=== PATIENT | female | born 1985 | race Caucasian/White ===

== ENCOUNTER → 2016-09-27 | Outpatient (CLI) | payer BC ==
[~2016-09-27] MED LIST: GADAVIST IV PRN
--- NOTE | 2016-09-27 20:05 | DIAGNOSTIC IMAGING REPORT ---
BRAIN COMBO FOR IAC CLINICAL HISTORY: Dizziness. Worsening migraines. Mass behind left tympanic membrane. COMPARISON STUDY: MRI the brain November 19, 2014. TECHNIQUE: Utilizing a 1.5 Migdalia magnet, multiplanar, multi echo imaging of the brain was performed pre and postcontrast administration. Injection of 7.5 cc of Gadavist IV was uneventful. Thin cut imaging through the internal auditory canals was performed. FINDINGS: There are no areas of restricted diffusion. No acute intracranial hemorrhage, midline shift or mass effect is present. Ventricular system is normal. Brain volume is normal. Basilar cisterns are patent. There are no extra-axial collections. There are no intracranial masses or areas of pathologic enhancement. There are no masses or abnormal enhancement within the internal auditory canals. There is no fluid within the mastoid air cells. A small amount of secretions within the left sphenoid sinus and a mucous retention cyst within the left maxillary sinus are similar to MRI of November 19, 2014. No areas of signal abnormality are identified within the brain. IMPRESSION: 1. Normal MRI of the brain. 2. No abnormalities within the internal auditory canals. Electronically signed by: Gregg Casper M.D. 09/27/2016 8:04 PM Dictated Date/Time: 09/27/2016 7:58 PM
--- NOTE | 2016-09-28 10:25 | DIAGNOSTIC IMAGING REPORT ---
CT OF THE TEMPORAL BONES WITHOUT CONTRAST CLINICAL HISTORY: Mass behind left tympanic membrane. Dizziness. Evaluate for cholesteatoma. TECHNIQUE: Thin cut axial images through the temporal bones were obtained. Coronal and sagittal reformats were viewed. COMPARISON STUDY: MRI of the brain November 19, 2014. FINDINGS: A small amount of secretions within the left sphenoid sinus are noted. Similar findings were shown on MRI of November 19, 2014. There is mucosal thickening or a small mucous retention cyst within the left maxillary sinus. Major drainage pathways of the sinuses are clear. There is no fluid within the mastoid air cells. The ossicles are intact. No mass is identified within either middle ear. There is no bony destruction. Semicircular canals appear intact. The tegmen tympani is intact. No semicircular canal dehiscence is identified on this examination. IMPRESSION: 1. No middle ear mass identified. Unremarkable CT of the temporal bones. 2. Secretions within the left sphenoid sinus and mucosal thickening or small mucous retention cyst within the left maxillary sinus which were shown on MRI of November 19, 2014. Electronically signed by: Gregg Casper M.D. 09/28/2016 10:23 AM Dictated Date/Time: 09/27/2016 4:57 PM
== END | disposition home or self-care (01) ==
LOC: C.CTS 16:29
DX: H73.92 Unspecified disorder of tympanic membrane, left ear (principal)

== ENCOUNTER → 2017-02-07 | Outpatient (CLI) | payer BC ==
[2017-02-07 18:49] LABS: URINE APPEARANCE CLEAR (CLEAR); URINE BILIRUBIN NEG (NEG); URINE COLOR YELLOW; URINE EPITHELIAL CELL AUTO >30 /lpf (0-5); URINE NITRITE NEG (NEG); URINE SPECIFIC GRAVITY 1.011 (1.000-1.030); UROBILINOGEN NEG (NEG)
[2017-02-07 18:55] LABS: MANUAL MICROSCOPIC REQUIRED? NO; REVIEW REQ? NO
[2017-02-12 19:31] LABS: CHLAMYDIA TRACH RNA*** NOT DETECTED (NOT DETECTED); GC (NEIS GONORRHOEAE)RNA** NOT DETECTED (NOT DETECTED); TRICHOMONAS VAGINALIS RNA** NOT DETECTED (NOT DETECTED)
== END | disposition home or self-care (01) ==
LOC: C.LABSPEC 17:46
PROVIDERS: ATTEND Obstetrics & Gynecology
DX: N76.0 Acute vaginitis (principal)